=== PATIENT | female | born 1980 | race African-American/Black ===

== ENCOUNTER 2016-05-25 23:46 | Emergency (ER) | payer MEDICAID ==
[~2016-05-25] VITALS: Ht 157.5 cm; Wt 124.7 kg
[2016-05-25] MEDS ORDERED: NKM (23:54)
[2016-05-26] MEDS ORDERED: Aspirin Baby 81mg ORAL ONE
[2016-05-26 00:28] LABS: BASOPHILS % (AUTO) 0.8 % (0.0-2.0); EOSINOPHILS % (AUTO) 3.2 % (0.0-3.0); LYMPHOCYTES % (AUTO) 32.5 % (20.0-45.0); MEAN CORPUSCULAR HEMOGLOBIN 27.9 PG (27.0-31.0); MEAN CORPUSCULAR HGB CONC 32.9 G/DL (32.0-36.0); MEAN CORPUSCULAR VOLUME 85 FL (80-99); MEAN PLATELET VOLUME 6.1 FL (6.5-10.1); MONOCYTES % (AUTO) 4.6 % (1.0-10.0); NEUTROPHILS % (AUTO) 58.8 % (45.0-75.0); PLATELET COUNT 289 K/UL (150-450); RED BLOOD COUNT 4.46 M/UL (4.20-5.40); RED CELL DISTRIBUTION WIDTH 13.3 % (11.6-14.8); WHITE BLOOD COUNT 8.1 K/UL (4.8-10.8)
[2016-05-26 01:18] VITALS: BP 130/80
[2016-05-26 01:19] LABS: APPEARANCE,URINE CLEAR; KETONES,URINE NEGATIVE (NEGATIVE); LEUKOCYTE ESTERASE ,URINE 1+ (NEGATIVE); NITRITE,URINE NEGATIVE (NEGATIVE); PH,URINE 6 (4.5-8.0); PROTEIN,URINE 1+ (NEGATIVE); UROBILINOGEN,URINE NORMAL MG/DL (0.0-1.0)
[2016-05-26 01:27] LABS: ALANINE AMINOTRANSFERASE 21 U/L (3-33); ALBUMIN/GLOBULIN RATIO 0.8 (1.0-2.7); ANION GAP 14 (5-15); ASPARTATE AMINO TRANSFERASE 22 U/L (5-40); CALCIUM 9.4 mg/dL (8.6-10.2); CARBON DIOXIDE 24 mEQ/L (20-30); CHLORIDE 102 mEQ/L (98-107); CREATININE 0.8 mg/dL (0.5-0.9); GLOMERULAR FILTRATION RATE > 60 mL/min (>60); HEMOLYSIS 4; POTASSIUM 4.3 mEQ/L (3.4-4.9); SODIUM 140 mEQ/L (135-145); TOTAL PROTEIN 7.7 g/dL (6.6-8.7)
[2016-05-26 01:29] LABS: BACTERIA,URINE FEW /HPF; RBC,URINE 60-80 /HPF (0 - 2); SQUAMOUS EPITHELIAL CELL,UR FEW /LPF (NONE/OCC); WBC,URINE 0-2 /HPF (0 - 2)
[2016-05-26 01:31] LABS: TROPONIN I < 0.30 ng/mL (<=0.30)
--- NOTE | 2016-05-26 01:52 | Emergency Room Report ---
History of Present Illness General Chief Complaint: Chest Pain Source: Patient Present Illness HPI This is a 36-year-old female with no past medical history. She presents with chief complaint of chest pain that's been ongoing for several days. She does have a mild cough. Worse with inspiration. No diaphoresis. No nausea no vomiting. Because the pain is persistent, she came in to be evaluated. Pain is achy and throbbing in nature. 09/06. Allergies: Coded Allergies: No Known Allergies (Unverified , 05/25/16) Patient History Past Medical History: see triage record, old chart reviewed Past Surgical History: other Pertinent Family History: none Social History: Denies: smoking Last Menstrual Period: 05/19/16 Now: No : 0 Para: 0 Immunizations: other Reviewed Nursing Documentation: PMH: Agreed, PSxH: Agreed Nursing Documentation-PMH Past Medical History: No Stated History Review of Systems Eye: Denies: blurred vision, eye pain ENT: Denies: ear pain, nose congestion, throat swelling Respiratory: Denies: cough, shortness of breath Cardiovascular: Reports: chest pain, Denies: palpitations Gastrointestinal: Denies: abdominal pain, diarrhea, nausea, vomiting Musculoskeletal: Denies: back pain, joint pain Skin: Denies: rash Neurological: Denies: headache, numbness Endocrine: Denies: increased thirst, increased urine Hematologic/Lymphatic: Denies: easy bruising All Other Systems: negative except mentioned in HPI Physical Exam Vital Signs Date Time Temp Pulse Resp B/P Pulse Ox O2 Delivery O2 Flow Rate FiO2 05/25/16 23:50 98.2 88 16 139/82 100 Room Air vitals normal Sp02 EP Interpretation: reviewed, normal General Appearance: well appearing, no apparent distress, alert, obese Head: normocephalic, atraumatic Eyes: bilateral eye EOMI, bilateral eye PERRL ENT: hearing grossly normal, normal pharynx Neck: full range of motion, supple, no meningismus Respiratory: chest non-tender, lungs clear, normal breath sounds Cardiovascular #1: regular rate, rhythm, no murmur Gastrointestinal: normal bowel sounds, non tender, no mass, no organomegaly, no bruit, non-distended Musculoskeletal: back normal, gait/station normal, normal range of motion Neurologic: alert, oriented x3 Psychiatric: mood/affect normal Skin: warm/dry Medical Decision Making Diagnostic Impression: Primary Impression: Chest pain Qualified Codes: R07.9 - Chest pain, unspecified ER Course Patient presents with chest pain. Atypical in nature. Notice of ACS, PE, dissection, pneumonia to name a few. She felt better now. We'll discharge home. Lab Results Impression labs unremarkable. EKG Diagnostic Results Rate: tachycardiac Rhythm: NSR ST Segments: no acute changes Rhythm Strip Diag. Results EP Interpretation: yes Rhythm: NSR, no PVC's, no ectopy Chest X-Ray Diagnostic Results EP Interpretation: Yes Findings: no consolidation, no effusion, no pneumothorax, no acute cardiopulmonary disease Number of Views: 1 CT/MRI/US Diagnostic Results CT/MRI/US Diagnostic Results : Imaging Test Ordered: CT chest Impression negative per radiologist Last Vital Signs Date Time Temp Pulse Resp B/P Pulse Ox O2 Delivery O2 Flow Rate FiO2 05/26/16 01:18 98.2 84 16 130/80 100 Room Air Status: improved Disposition: HOME, SELF-CARE Condition: Stable Scripts Ibuprofen* (MOTRIN*) 600 Mg Tablet 600 MG ORAL THREE TIMES A DAY, #30 TAB 0 Refills Prov: JESSICA PRIETO M.D. 05/26/16 Referrals: NOT CHOSEN IPA/,REFERRING (PCP) Patient Instructions: Nonspecific Chest Pain Additional Instructions: Followup with your DrBlane in 2 to 3 days. Return if symptom worsen. JESSICA PRIETO M.D. May 26, 2016 01:52
[2016-05-26] MEDS ORDERED: IBUPROFEN600 MG ORAL (03:12)
[2016-05-26 03:22] VITALS: BP 126/74
[2016-05-26 03:24] VITALS: BP 126/74
[2016-05-26 05:35] LABS: CKMB < 1.5 ng/mL (< 3.8)
--- NOTE | 2016-05-26 11:00 | Diagnostic Imaging Report ---
ndication: Chest pain Technique: IV administration nonionic contrast. Spiral acquisitions obtained from the lung bases to the lung apices. Multiplanar and 3-D reconstructions were generated. Total dose length product 1330 mGycm. CTDIvol(s) 12, 151, 41 mGy Comparison: None Findings: Per technologist, IV access was difficult and some. As a result, pulmonary arterial opacification is very poor, adequate for exclusion of all but the largest central pulmonary emboli. No gross large vessel central pulmonary embolus demonstrated. No pulmonary arterial dilatation or right ventricular dilatation demonstrated. Normal caliber thoracic aorta. The lungs are clear. No infiltrates, masses, effusions, or nodules. The heart size is upper limits normal. No pericardial effusion. No mediastinal or hilar mass or adenopathy. There is nonspecific increased attenuation of the prevascular mediastinal fat. Prominent but not frankly enlarged axillary lymph nodes are present. The included portions of the thyroid are unremarkable. The included upper abdominal anatomy is unremarkable. The bones demonstrate degenerative changes of the thoracic spine, equivocal multiple mild superior endplate compression deformities. Impression: Poor pulmonary arterial contrast opacification, precluding exclusion of all but large central pulmonary emboli. No gross abnormality demonstrated Clear lungs Equivocal multiple mild superior endplate thoracic compression fracture deformities. Correlate with clinical findings, consider MRI if clinically indicated Incidental finding of degenerative thoracic spondylosis This agrees with the preliminary interpretation provided overnight by [facility]. The CT scanner at [facility] is accredited by the [employer] and the scans are performed using protocols designed to limit radiation exposure to as low as reasonably achievable to attain images of sufficient resolution adequate for diagnostic evaluation.
--- NOTE | 2016-05-26 16:05 | Cardiology Report ---
APPROVED REPORT EKG Measurement Heart [id number] [id number] Sinus tachycardia Otherwise normal ECG
--- NOTE | 2016-05-27 09:12 | Diagnostic Imaging Report ---
Indication: CP shortness of breath Technique: One view of the chest Comparison: none Findings: Lungs and pleural spaces are clear. Heart size is normal. Impression: No acute process
== END 2016-05-26 03:26 | disposition home or self-care (01) ==
LOC: EMR 23:55
DX: R07.9 Chest pain, unspecified (principal)
CPT/HCPCS: 36415; 71010; 71275; 80053; 81003; 81025; 82550; 82553; 84484; 85025; 85379; 93005; 99284; Q9967

== ENCOUNTER 2016-07-01 20:50 | Emergency (ER) | payer SELFPAY ==
[~2016-07-01] VITALS: Ht 157.5 cm; Wt 133.4 kg
[~2016-07-01 20:50] MED LIST: IBUPROFEN600 MG ORAL; NKM
[2016-07-01 21:05] VITALS: BP 140/85
--- NOTE | 2016-07-01 21:14 | Emergency Room Report ---
History of Present Illness General Chief Complaint: Syncope Source: Patient Present Illness HPI Patient is a positional female presented after having a syncopal episode. Patient had syncope during upright position. Patient reports having pain to the right side of her head after fall. The patient had no prior medical history. 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 Denies other current symptoms apart from headache. She denies any recent fevers. She had recently finished her period. She denies being . She denies prior history of diabetes Allergies: Coded Allergies: No Known Allergies (Unverified , 05/25/16) Patient History Past Medical History: see triage record Last Menstrual Period: 1 WEEK AGO Reviewed Nursing Documentation: PMH: Agreed, PSxH: Agreed Nursing Documentation-PMH Past Medical History: No Stated History Review of Systems All Other Systems: negative except mentioned in HPI Physical Exam Vital Signs Date Time Temp Pulse Resp B/P Pulse Ox O2 Delivery O2 Flow Rate FiO2 07/01/16 20:59 98.1 90 18 145/80 100 Room Air Sp02 EP Interpretation: reviewed, normal General Appearance: normal inspection, well appearing, no apparent distress, alert, obese Head: atraumatic Eyes: bilateral eye conjunctivae pale ENT: normal ENT inspection, hearing grossly normal, normal voice Neck: normal inspection, full range of motion, supple, no bony tend Respiratory: normal inspection, lungs clear, normal breath sounds, no respiratory distress, no retraction, no wheezing Cardiovascular #1: regular rate, rhythm, no edema Gastrointestinal: normal inspection, normal bowel sounds, non tender, soft, no guarding, no hernia Genitourinary: no CVA tenderness Musculoskeletal: normal inspection, back normal, normal range of motion Neurologic: normal inspection, alert, oriented x3, responsive, 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 Differential diagnosis included was not limited to anemia, orthostatic hypotension, sepsis, arrhythmia among others. EKG interpreted by me showed normal sinus rhythm a rate of [address] or T wave changes. hospital medical biller showed a rhythm strip with normal sinus rhythm with a rate of 96 without PVCs or ectopy.Left wrist that he showed mild elevation of her white blood count. Patient noted have some abrasion to her right ear. This did not appear for suturing. There is no a hematoma that required drainage at this time. CT the head read by radiology showed no evident fracture or intracranial hemorrhage. The patient was given IV fluids. Patient given note for work. She is advised to followup with primary care physician in the next one to 2 days for reexamination. Labs Test 07/01/16 21:50 White Blood Count 12.6 K/UL (4.8-10.8) Red Blood Count 3.90 M/UL (4.20-5.40) Hemoglobin 11.0 G/DL (12.0-16.0) Hematocrit 34.3 % (37.0-47.0) Mean Corpuscular Volume 88 FL (80-99) Mean Corpuscular Hemoglobin 28.3 PG (27.0-31.0) Mean Corpuscular Hemoglobin Concent 32.1 G/DL (32.0-36.0) Red Cell Distribution Width 14.0 % (11.6-14.8) Platelet Count 284 K/UL (150-450) Mean Platelet Volume 5.9 FL (6.5-10.1) Neutrophils (%) (Auto) 79.8 % (45.0-75.0) Lymphocytes (%) (Auto) 13.6 % (20.0-45.0) Monocytes (%) (Auto) 5.1 % (1.0-10.0) Eosinophils (%) (Auto) 0.8 % (0.0-3.0) Basophils (%) (Auto) 0.7 % (0.0-2.0) Prothrombin Time 10.2 SEC (9.30-11.50) Prothromb Time International Ratio 1.0 (0.9-1.1) Activated Partial Thromboplast Time 24 SEC (23-33) D-Dimer 766 ng/mL (<500) Sodium Level 138 mEQ/L (135-145) Potassium Level 4.1 mEQ/L (3.4-4.9) Chloride Level 99 mEQ/L (98-107) Carbon Dioxide Level 26 mEQ/L (20-30) Anion Gap 13 (5-15) Blood Urea Nitrogen 16 mg/dL (7-23) Creatinine 0.8 mg/dL (0.5-0.9) Estimat Glomerular Filtration Rate > 60 mL/min (>60) Glucose Level 94 mg/dL (74-106) Calcium Level 9.0 mg/dL (8.6-10.2) Total Bilirubin 0.5 mg/dL (0.0-1.2) Aspartate Amino Transf (AST/SGOT) 27 U/L (5-40) Alanine Aminotransferase (ALT/SGPT) 21 U/L (3-33) Alkaline Phosphatase 89 U/L (35-104) Total Creatine Kinase 353 U/L (26-140) Creatine Kinase MB 3.1 ng/mL (< 3.8) Creatine Kinase MB Relative Index 0.8 Troponin I < 0.30 ng/mL (<=0.30) Pro-B-Type Natriuretic Peptide 72 pg/mL (0-125) Total Protein 7.3 g/dL (6.6-8.7) Albumin 3.7 g/dL (3.5-5.2) Globulin 3.6 g/dL Albumin/Globulin Ratio 1.0 (1.0-2.7) Last Vital Signs Date Time Temp Pulse Resp B/P Pulse Ox O2 Delivery O2 Flow Rate FiO2 07/01/16 20:59 98.1 90 18 145/80 100 Room Air Status: improved Disposition: HOME, SELF-CARE Condition: Stable Scripts Ibuprofen* (MOTRIN*) 600 Mg Tablet 600 MG ORAL Q8H Y for For Pain, #30 TAB 0 Refills Prov: Keith West 07/01/16 Cephalexin* (KEFLEX*) 500 Mg Capsule 500 MG ORAL EVERY 6 HOURS, #28 CAP 0 Refills Prov: Keith West 07/01/16 Keith West July 01, 2016 21:14
[2016-07-01 22:27] LABS: BASOPHILS % (AUTO) 0.7 % (0.0-2.0); EOSINOPHILS % (AUTO) 0.8 % (0.0-3.0); LYMPHOCYTES % (AUTO) 13.6 % (20.0-45.0); MEAN CORPUSCULAR HEMOGLOBIN 28.3 PG (27.0-31.0); MEAN CORPUSCULAR HGB CONC 32.1 G/DL (32.0-36.0); MEAN CORPUSCULAR VOLUME 88 FL (80-99); MEAN PLATELET VOLUME 5.9 FL (6.5-10.1); MONOCYTES % (AUTO) 5.1 % (1.0-10.0); NEUTROPHILS % (AUTO) 79.8 % (45.0-75.0); PLATELET COUNT 284 K/UL (150-450); WHITE BLOOD COUNT 12.6 K/UL (4.8-10.8)
[2016-07-01 22:35] LABS: PROTHROMBIN TIME 10.2 SEC (9.30-11.50)
[2016-07-01 22:42] LABS: ALANINE AMINOTRANSFERASE 21 U/L (3-33); ANION GAP 13 (5-15); ASPARTATE AMINO TRANSFERASE 27 U/L (5-40); CARBON DIOXIDE 26 mEQ/L (20-30); CHLORIDE 99 mEQ/L (98-107); CREATININE 0.8 mg/dL (0.5-0.9); GLOMERULAR FILTRATION RATE > 60 mL/min (>60); HEMOLYSIS 16; POTASSIUM 4.1 mEQ/L (3.4-4.9); SODIUM 138 mEQ/L (135-145); TOTAL PROTEIN 7.3 g/dL (6.6-8.7)
[2016-07-01 22:44] LABS: TROPONIN I < 0.30 ng/mL (<=0.30)
[2016-07-01 22:54] LABS: CKMB 3.1 ng/mL (< 3.8)
[2016-07-01 23:00] VITALS: BP 138/84
[2016-07-01] MEDS ORDERED: KEFLEX500 MG ORAL (23:06)
[2016-07-01] MEDS ORDERED: IBUPROFEN600 MG ORAL (23:06)
[2016-07-02] MEDS ORDERED: Bacitracin Oint UD TOPIC ONE (00:15)
[2016-07-02 00:25] VITALS: BP 140/86
--- NOTE | 2016-07-02 10:19 | Diagnostic Imaging Report ---
Indication: Headache Technique: Contiguous 5 mm thick transaxial imaging of the head obtained in a Siemens Sensation [address] scanner. Soft tissue and bone windows generated. Total Dose length Product (DLP): [address] Dose Index Volume (CTDIvol): 70.38 mGy Comparison: none Findings: The size and configuration of the cortical sulci, basal cisterns, and ventricles are within normal limits for age. There is no mass effect, midline shift, or edema identified. There is no evidence of acute hemorrhage or abnormal intra-axial or extra-axial fluid collections. The bones and soft tissues are unremarkable. Impression: No mass effect, edema or acute bleed. [facility] has communicated the preliminary results to the Emergency Department. Their findings are largely concordant with this report. The CT scanner at [facility] is accredited by the [employer] and the scans are performed using protocols designed to limit radiation exposure to as low as reasonably achievable to attain images of sufficient resolution adequate for diagnostic evaluation.
--- NOTE | 2016-07-03 17:34 | Cardiology Report ---
APPROVED REPORT EKG Measurement Heart [id number] [id number] Normal sinus rhythm Normal ECG
== END 2016-07-02 00:25 | disposition home or self-care (01) ==
LOC: EMR 21:30
DX: R55 Syncope and collapse (principal); T14.8 Other injury of unspecified body region; W19.XXXA Unspecified fall, initial encounter; Y92.89 Other specified places as the place of occurrence of the external cause
CPT/HCPCS: 36415; 70450; 80053; 82550; 82553; 83880; 84484; 85025; 85379; 85610; 85730; 86850; 86900; 86901; 93005; 96360; 99284; J7040

== ENCOUNTER 2017-02-01 17:46 | Emergency (ER) | payer MEDICAID ==
[~2017-02-01] VITALS: Ht 157.5 cm; Wt 127.0 kg
[2017-02-01 17:46] VITALS: BP 138/86
[~2017-02-01 17:46] MED LIST changes: +KEFLEX500 MG ORAL
[2017-02-01] MEDS ORDERED: KEPPRA500 M4 ORAL (17:47)
--- NOTE | 2017-02-01 17:49 | Emergency Room Report ---
History of Present Illness General Chief Complaint: Seizure Source: Patient, EMS Present Illness HPI Patient presents after having a generalized is tonic/clonic seizure. She is taking Keppra and it was recently increased to a thousand milligrams twice a day. Her last seizure was in November. She has not seen a neurologist. She is certain she's been taking her medication. She bit the right side of her tongue. No other trauma. No fevers, NVD, dysuria, other joint pain, rashes, weakness, numbness, diabetes. She's on her period now. She feels seizure onset (June) might be due to increase in her work schedule. Allergies: Coded Allergies: No Known Allergies (Unverified , 05/25/16) Patient History Past Medical History: see triage record Social History: Denies: alcohol use, drug use Social History Narrative prior work at [employer] Last Menstrual Period: now Reviewed Nursing Documentation: PMH: Agreed, PSxH: Agreed Nursing Documentation-PMH Past Medical History: No History, Except For Hx Seizures: Yes Review of Systems All Other Systems: negative except mentioned in HPI Physical Exam Vital Signs Date Time Temp Pulse Resp B/P (MAP) Pulse Ox O2 Delivery O2 Flow Rate FiO2 02/01/17 17:39 98.4 86 18 138/86 99 Room Air Sp02 EP Interpretation: reviewed, normal General Appearance: well appearing, no apparent distress, GCS 15 Head: normocephalic, atraumatic Eyes: bilateral eye normal inspection, bilateral eye PERRL, bilateral eye EOMI ENT: moist mucus membranes - R lingual maceration Neck: full range of motion, supple, no bony tend Respiratory: chest non-tender, lungs clear, normal breath sounds Cardiovascular #1: regular rate, rhythm Cardiovascular #2: 2+ radial (R) Gastrointestinal: normal inspection, normal bowel sounds, non tender, no mass, non-distended, overweight Musculoskeletal: back normal, gait/station normal, normal range of motion Neurologic: alert, oriented x3, 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 DDx: breakthrough seizure, electrolyte abnormality, subtherapeutic med level. Non-focal neuro/no red flag sy or signs/ headache - CT not indicated. Check CXR for possible aspiration. Labs also checked. Phenobarbital given as states taking meds and will add second med. EKG to exclude cardiac etiology with cor monitoring. EKG no injury. CXR clear. Labs unremarkable (menses). Tox after phenobarbital given. Patient improved with treatment. Feels a little "tired". Neuro normal. Patient stable for outpatient observation and treatment Laboratory Tests Test 02/01/17 18:05 02/01/17 19:28 White Blood Count 9.0 K/UL (4.8-10.8) Red Blood Count 4.65 M/UL (4.20-5.40) Hemoglobin 12.1 G/DL (12.0-16.0) Hematocrit 38.7 % (37.0-47.0) Mean Corpuscular Volume 83 FL (80-99) Mean Corpuscular Hemoglobin 25.9 PG (27.0-31.0) L Mean Corpuscular Hemoglobin Concent 31.1 G/DL (32.0-36.0) L Red Cell Distribution Width 14.8 % (11.6-14.8) Platelet Count 214 K/UL (150-450) Mean Platelet Volume 6.2 FL (6.5-10.1) L Neutrophils (%) (Auto) 65.3 % (45.0-75.0) Lymphocytes (%) (Auto) 27.8 % (20.0-45.0) Monocytes (%) (Auto) 4.5 % (1.0-10.0) Eosinophils (%) (Auto) 1.7 % (0.0-3.0) Basophils (%) (Auto) 0.7 % (0.0-2.0) Sodium Level 137 MMOL/L (136-145) Potassium Level 4.2 MMOL/L (3.5-5.1) Chloride Level 104 MMOL/L (98-107) Carbon Dioxide Level 23 MMOL/L (21-32) Anion Gap 10 mmol/L (5-15) Blood Urea Nitrogen 15 mg/dL (7-18) Creatinine 0.9 MG/DL (0.55-1.30) Estimate Glomerular Filtration Rate > 60 mL/min (>60) Glucose Level 101 MG/DL (74-106) Calcium Level 8.9 MG/DL (8.5-10.1) Total Bilirubin 0.3 MG/DL (0.2-1.0) Aspartate Amino Transferase (AST) 32 U/L (15-37) Alanine Aminotransferase (ALT) 38 U/L (12-78) Alkaline Phosphatase 94 U/L (46-116) Total Creatine Kinase 181 U/L (26-308) Total Protein 7.4 G/DL (6.4-8.2) Albumin 3.2 G/DL (3.4-5.0) L Globulin 4.2 g/dL Albumin/Globulin Ratio 0.8 (1.0-2.7) L Urine Color Pale yellow Urine Appearance Slightly cloudy Urine pH 5 (4.5-8.0) Urine Specific Leopold 1.010 (1.005-1.035) Urine Protein 2+ (NEGATIVE) H Urine Glucose (UA) Negative (NEGATIVE) Urine Ketones Negative (NEGATIVE) Urine Occult Blood 5+ (NEGATIVE) H Urine Nitrite Negative (NEGATIVE) Urine Bilirubin Negative (NEGATIVE) Urine Urobilinogen Normal MG/DL (0.0-1.0) Urine Leukocyte Esterase 1+ (NEGATIVE) H Urine RBC Tntc /HPF (0 - 2) H Urine WBC 0-2 /HPF (0 - 2) Urine Squamous Epithelial Cells Few /LPF (NONE/OCC) Urine Bacteria Few /HPF (NONE) Urine HCG, Qualitative Negative Urine Opiates Screen Negative (NEGATIVE) Urine Barbiturates Screen Positive (NEGATIVE) H Phencyclidine (PCP) Screen Negative (NEGATIVE) Urine Amphetamines Screen Negative (NEGATIVE) Urine Benzodiazepines Screen Negative (NEGATIVE) Urine Cocaine Screen Negative (NEGATIVE) Urine Marijuana (THC) Screen Negative (NEGATIVE) EKG Diagnostic Results Rate: normal Rhythm: NSR ST Segments: no acute changes Rhythm Strip Diag. Results EP Interpretation: yes Rhythm: NSR, no PVC's, no ectopy Chest X-Ray Diagnostic Results Chest X-Ray Diagnostic Results : Chest X-Ray Ordered: Yes # of Views/Limited/Complete: 1 View Indication: Other EP Interpretation: Yes Interpretation: no consolidation, no effusion, no pneumothorax, no acute cardiopulmonary disease Impression: No acute disease Electronically Signed by: Emerson Santana MD Last Vital Signs Date Time Temp Pulse Resp B/P (MAP) Pulse Ox O2 Delivery O2 Flow Rate FiO2 12//17 20:29 98.4 77 19 117/63 100 Room Air Status: improved Disposition: HOME, SELF-CARE Condition: Improved Scripts Phenobarbital* (PHENOBARBITAL*) 30 Mg Tablet 30 MG ORAL BID, #30 TAB 1 Refill Prov: Emerson Santana M.D. 02/01/17 Emerson Santana M.D. Feb 01, 2017 17:49
[2017-02-01 18:24] LABS: BASOPHILS % (AUTO) 0.7 % (0.0-2.0); EOSINOPHILS % (AUTO) 1.7 % (0.0-3.0); LYMPHOCYTES % (AUTO) 27.8 % (20.0-45.0); MEAN CORPUSCULAR HEMOGLOBIN 25.9 PG (27.0-31.0); MEAN CORPUSCULAR HGB CONC 31.1 G/DL (32.0-36.0); MEAN CORPUSCULAR VOLUME 83 FL (80-99); MEAN PLATELET VOLUME 6.2 FL (6.5-10.1); MONOCYTES % (AUTO) 4.5 % (1.0-10.0); NEUTROPHILS % (AUTO) 65.3 % (45.0-75.0); PLATELET COUNT 214 K/UL (150-450); RED BLOOD COUNT 4.65 M/UL (4.20-5.40); RED CELL DISTRIBUTION WIDTH 14.8 % (11.6-14.8)
[2017-02-01 18:32] LABS: ANION GAP 10 mmol/L (5-15); CALCIUM 8.9 MG/DL (8.5-10.1); CARBON DIOXIDE 23 MMOL/L (21-32); CHLORIDE 104 MMOL/L (98-107); CREATININE 0.9 MG/DL (0.55-1.30); GLOMERULAR FILTRATION RATE > 60 mL/min (>60); POTASSIUM 4.2 MMOL/L (3.5-5.1); SODIUM 137 MMOL/L (136-145)
[2017-02-01 18:37] LABS: ALANINE AMINOTRANSFERASE 38 U/L (12-78); ALBUMIN/GLOBULIN RATIO 0.8 (1.0-2.7); ASPARTATE AMINO TRANSFERASE 32 U/L (15-37); TOTAL PROTEIN 7.4 G/DL (6.4-8.2)
[2017-02-01] MEDS ORDERED: PHENOBARBITAL30 MG ORAL (19:25)
[2017-02-01 19:45] LABS: APPEARANCE,URINE SLIGHTLY CLOUDY; KETONES,URINE NEGATIVE (NEGATIVE); LEUKOCYTE ESTERASE ,URINE 1+ (NEGATIVE); NITRITE,URINE NEGATIVE (NEGATIVE); PH,URINE 5 (4.5-8.0); PROTEIN,URINE 2+ (NEGATIVE); UROBILINOGEN,URINE NORMAL MG/DL (0.0-1.0)
[2017-02-01 19:51] LABS: RBC,URINE TNTC /HPF (0 - 2); WBC,URINE 0-2 /HPF (0 - 2)
[2017-02-01 19:52] LABS: BACTERIA,URINE FEW /HPF; SQUAMOUS EPITHELIAL CELL,UR FEW /LPF (NONE/OCC)
[2017-02-01 20:24] VITALS: BP 117/63
[2017-02-01 20:29] VITALS: BP 117/63
--- NOTE | 2017-02-02 12:42 | Diagnostic Imaging Report ---
Indication: Shortness of breath Technique: One view of the chest Comparison: 3 Findings: Body habitus limits evaluation there is Lungs and pleural spaces are clear. Heart size is upper limits normal . No significant interim change Impression: No acute process This agrees with the preliminary interpretation provided by the emergency room physician
--- NOTE | 2017-02-03 17:05 | Cardiology Report ---
APPROVED REPORT EKG Measurement Heart [id number] Normal sinus rhythm Cannot rule out Anterior infarct, age undetermined Abnormal ECG
== END 2017-02-01 20:29 | disposition home or self-care (01) ==
LOC: EDBD 17:46 → EMR 18:10
DX: G40.409 Other generalized epilepsy and epileptic syndromes, not intractable, without status epilepticus (principal); R06.02 Shortness of breath
CPT/HCPCS: 36415; 71010; 80053; 80307; 81003; 81025; 82550; 82962; 85025; 93005; 96361; 96374; 99284; J2560

== ENCOUNTER 2018-04-11 23:33 | Emergency (ER) | payer MEDICAID ==
[~2018-04-11] VITALS: Ht 154.9 cm; Wt 138.3 kg
[~2018-04-11 23:33] MED LIST changes: +KEPPRA500 M4 ORAL; +PHENOBARBITAL30 MG ORAL
[2018-04-11 23:57] VITALS: BP 124/70
--- NOTE | 2018-04-11 23:59 | NUR ---
ED Nurse Note: PT WALKED IN DUE TO COUGH AND COLD X 8 DAYS PT ALSO COMPLAINING OF LEFT EARACHE. AO4. NAD. VSS.
[2018-04-12 00:30] VITALS: BP 124/70
[2018-04-12] MEDS ORDERED: PSEUDOEPHEDRINE60 MG PO (00:30)
[2018-04-12] MEDS ORDERED: AUGMENTIN 875-1 EAC1 ORAL (00:30)
--- NOTE | 2018-04-12 00:30 | NUR ---
ED Nurse Note: Patient cleared for discharge per ERMD. NAD. VSS. Accompanied by family member. Patient given prescriptions and discharge instructions; verbalized understanding. ID band removed. Patient ambulated steady with all personal belongings.
--- NOTE | 2018-04-12 00:30 | Emergency Room Report ---
History of Present Illness General Chief Complaint: Upper Respiratory Illness Source: Patient Present Illness HPI Is a 38-year-old female with a history of seizure. She presents with chief complaint of coughing congestion for the last week and a half. Now with low- grade fever. Her main concern is that her sinus been clogged and when she blow her nose she has intermittent loss of hearing and decreased hearing in the left ear. She had a recent MRI done last month for follow-up on a possible mass on her left side of her brain. She was concerned that it may be related. She denies any fever chills. Denies any headache. Nothing made it better. Nothing made it worse. Allergies: Coded Allergies: No Known Allergies (Unverified , 05/25/16) Patient History Past Medical History: see triage record, old chart reviewed, seizures Past Surgical History: other Pertinent Family History: none Social History: Denies: smoking Last Menstrual Period: STILL ON Now: No Immunizations: other Reviewed Nursing Documentation: PMH: Agreed; PSxH: Agreed Nursing Documentation-PMH Past Medical History: No Stated History Hx Seizures: Yes Review of Systems Eye: Denies: eye pain, blurred vision ENT: Reports: nose congestion, hearing loss; Denies: ear pain, throat swelling Respiratory: Reports: cough; Denies: shortness of breath Cardiovascular: Denies: chest pain, palpitations Gastrointestinal: Denies: abdominal pain, diarrhea, nausea, vomiting Musculoskeletal: Denies: back pain, joint pain Skin: Denies: rash Neurological: Denies: headache, numbness Endocrine: Denies: increased thirst, increased urine Hematologic/Lymphatic: Denies: easy bruising All Other Systems: negative except mentioned in HPI Physical Exam Vital Signs Date Time Temp Pulse Resp B/P (MAP) Pulse Ox O2 Delivery O2 Flow Rate FiO2 04/11/18 23:38 100.6 99 16 124/70 97 Room Air vitals with low-grade fever Sp02 EP Interpretation: reviewed, normal General Appearance: well appearing, no apparent distress, alert Head: normocephalic, atraumatic Eyes: bilateral eye PERRL, bilateral eye EOMI ENT: hearing grossly normal, normal pharynx, other - Right TM is erythematous. There is effusion. Neck: full range of motion, supple, no meningismus Respiratory: chest non-tender, lungs clear, normal breath sounds Cardiovascular #1: regular rate, rhythm, no murmur Gastrointestinal: normal bowel sounds, non tender, no mass, no organomegaly, no bruit, non-distended Musculoskeletal: back normal, gait/station normal, normal range of motion Psychiatric: mood/affect normal Skin: warm/dry Medical Decision Making Diagnostic Impression: Primary Impression: Upper respiratory infection Qualified Codes: J06.9 - Acute upper respiratory infection, unspecified Additional Impression: Otitis media Qualified Codes: H66.90 - Otitis media, unspecified, unspecified ear ER Course Patient presents with upper respiratory infection now with otitis media. No evidence of TIA or CVA. No meningitis. Patient is stable. We'll discharge home with antibiotics. Last Vital Signs Date Time Temp Pulse Resp B/P (MAP) Pulse Ox O2 Delivery O2 Flow Rate FiO2 04/11/18 23:57 100.6 99 16 124/70 97 Room Air Status: unchanged Disposition: HOME, SELF-CARE Condition: Stable Scripts Pseudoephedrine Hcl* (SUDAFED*) 60 Mg Tablet 60 MG PO Q6H, #20 TAB Prov: Alberto Perez MD 04/12/18 Amoxicillin/Potassium Clav 875-125* (AUGMENTIN 875-125 TABLET*) 1 Each Tablet 1 TAB ORAL TWICE A DAY, #14 TAB Prov: Alberto Perez MD 04/12/18 Patient Instructions: Upper Respiratory Infection, Adult Additional Instructions: Follow-up your doctor in 7 days. Return if symptom worsen. Alberto Perez MD Apr 12, 2018 00:30
== END 2018-04-12 00:30 | disposition home or self-care (01) ==
LOC: EMR 23:59
DX: J06.9 Acute upper respiratory infection, unspecified (principal); H66.91 Otitis media, unspecified, right ear
CPT/HCPCS: 99282